=== PATIENT | female | born 2000 | race Caucasian/White ===

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

== ENCOUNTER 2021-04-24 10:43 | Emergency (ER) | payer OTHER ==
[~2021-04-24] VITALS: Wt 68.0 kg
== END 2021-04-24 12:10 | disposition home or self-care (01) ==
LOC: ED 10:43
DX: T22.111A Burn of first degree of right forearm, initial encounter (principal); T21.11XA Burn of first degree of chest wall, initial encounter; T31.0 Burns involving less than 10% of body surface; Z79.899 Other long term (current) drug therapy; Z98.890 Other specified postprocedural states; Z96.22 Myringotomy tube(s) status; X11.8XXA Contact with other hot tap-water, initial encounter; Y93.89 Activity, other specified; Y92.89 Other specified places as the place of occurrence of the external cause; Y99.0 Civilian activity done for income or pay

== ENCOUNTER 2022-08-23 08:42 | Emergency (ER) | payer OTHER ==
[~2022-08-23] VITALS: Ht 152.4 cm; Wt 68.0 kg
[2022-08-23] MEDS ORDERED: BACITRACIN28.4 GM TD (09:08)
[2022-08-23] MEDS ORDERED: CEPHALEXIN500 M1 PO (09:08)
[2022-08-23] MEDS ORDERED: SEPTDS PO (09:08)
== END 2022-08-23 09:26 | disposition home or self-care (01) ==
LOC: ED 08:42
DX: L03.011 Cellulitis of right finger (principal); F32.A Depression, unspecified; F41.9 Anxiety disorder, unspecified; Z88.8 Allergy status to other drugs, medicaments and biological substances; Z90.89 Acquired absence of other organs; Z98.890 Other specified postprocedural states

== ENCOUNTER → 2022-09-04 | Outpatient (CLI) | payer OTHER ==
[~2022-09-04] MED LIST changes: +BACITRACIN28.4 GM TD
== END | disposition home or self-care (01) ==
LOC: WOUNDCARE 01:03
PROVIDERS: ATTEND Nurse Practitioner Family
DX: S61.001A Unspecified open wound of right thumb without damage to nail, initial encounter (principal); L02.511 Cutaneous abscess of right hand; F17.200 Nicotine dependence, unspecified, uncomplicated; Z71.6 Tobacco abuse counseling; X58.XXXA Exposure to other specified factors, initial encounter; Y93.89 Activity, other specified; Y92.89 Other specified places as the place of occurrence of the external cause; Y99.8 Other external cause status